=== PATIENT | male | born 1980 | race Caucasian/White ===

== ENCOUNTER 2020-08-21 11:00 | Outpatient (RCR) | payer OTHER, SELFPAY ==
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
--- NOTE | 2020-07-27 15:10 | PCPTNOTE ---
Patient did not show up for scheduled appointment this date.
--- NOTE | 2020-08-04 07:36 | PCPTNOTE ---
Patient cancelled scheduled appointment this date due to being out of town for work.
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
--- NOTE | 2020-08-24 12:59 | PCPTNOTE ---
Patient called & cancelled scheduled appointment this date stating her had increase pain and going to see MD later today.
--- NOTE | 2020-09-17 08:30 | PCPTNOTE ---
Admitting Provider: Attending Provider: Ten Luis, Patient:Derian Tovar Date of :1980 Discharge Note Patient has not returned for any further treatments since 08/21/2020, therefore he will be discharged at this time. Patient?s initial visit was on 07/21/2020 13:30 and he had a total of 5 visits with 3 cancel/no show visits. The goals have been not met with an increase of his symptoms. Thank you for referring this patient to [facility]. Please review, sign, date and return this discharge summary ROBBIE. I have been updated about the patient's current status and I agree with discharge from the above service at this time. Referring Physician Date
== END 2020-09-17 10:09 | disposition home or self-care (01) ==
LOC: ANHPT 11:00
PROVIDERS: Visit Provider Family Medicine
DX: M54.12 Radiculopathy, cervical region (principal); M54.9 Dorsalgia, unspecified
CPT/HCPCS: 97014; 97110; 97140; 97162; G0283

== ENCOUNTER → 2022-12-29 15:35 | Outpatient (CLI) | payer OTHER, SELFPAY ==
--- NOTE | ~2022-12-29 | MR_ITS ---
MRI of the left ankle Clinical history: Chronic pain Technique: Coronal proton-density and proton-density fat-sat images, axial proton-density and proton- density fat-sat images, and sagittal proton-density and proton-density fat-sat images were acquired. Findings: There is thickening and increased signal of the anterior, distal tibiofibular ligament. Pos terior distal tibiofibular ligament and the syndesmosis are unremarkable. Anterior and posterior talo fibular ligaments, and calcaneofibular ligament are intact. Deltoid ligament is intact. There is tendinosis of the distal tibialis posterior tendon. Medial flexor tendons otherwise are inta ct. Peroneal tendons, Achilles tendon, and anterior extensor tendons are intact. Bone marrow signals are unremarkable. Joint spaces are intact. No osteochondral lesion of the talar d ome. Plantar fascia is intact. Normal signal preserved within the sinus Tarsi. There is mild subcutaneous soft tissue edema at the anterior aspect of the ankle, nonspecific. IMPRESSION: Mild subcutaneous soft tissue edema at the anterior aspect of the ankle, nonspecific. This correlate with the site of the marker. Probable chronic thickening and increased signal of the anterior, distal tibiofibular ligament, ronald tible with sequela of chronic or healed prior injury. Acute injury felt to be less likely given relat samantha lack of acute edematous changes in this region. Reviewed, dictated and finalized at [facility]. ATTACHER IMPRESSION: Mild subcutaneous soft tissue edema at the anterior aspect of the ankle, nonsp ecific. This correlate with the site of the marker. Probable chronic thickening and increased signal of the anterior, distal tibiof ibular ligament, compatible with sequela of chronic or healed prior injury. Acu te injury felt to be less likely given relative lack of acute edematous changes in this region.
== END ==
PROVIDERS: PCP Orthopaedic Surgery; Visit Provider Orthopaedic Surgery
DX: M25.572 Pain in left ankle and joints of left foot (principal); G89.29 Other chronic pain; M25.571 Pain in right ankle and joints of right foot
CPT/HCPCS: 73721